=== PATIENT | male | born 1990 | race Caucasian/White ===

== ENCOUNTER 2017-02-05 03:26 | Emergency (ER) | payer MEDICARE ==
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
[~2017-02-05 03:26] MED LIST: ALBUTEROL17 GM INH; BACITRACIN30 GM TOP; DOXYCYCLINE HY100 M1 PO; ERYTHROMYCIN500 MG PO; IBUPROFEN PO; IBUPROFEN800 MG PO; KEFLEX PO; PREDNISONE PO; RONDEC-DM SYRU120 ML PO; VICODIN 5/500 T1 TAB PO; VICODIN PO
[2017-02-05 04:14] LABS: BASOPHIL# 0.1 X10e3 (0-0.3); BASOPHIL% 0.8 % (0-2.5); EOSINOPHIL# 0.1 X10e3 (0-0.7); EOSINOPHIL% 0.8 % (0.0-7.0); HEMATOCRIT 40.5 % (38.0-50.0); HEMOGLOBIN 13.2 gm/dL (13.0-16.0); LYMPHOCYTE# 2.7 X10e3 (1.0-3.5); LYMPHOCYTE% 32.1 % (17.0-45.0); MEAN CELL VOLUME 85.1 FL (83-96); MEAN CORPUSCULAR HEMOGLOBIN 27.7 PG (28-34); MEAN CORPUSCULAR HGB CONC 32.5 g/dL (30-36); MEAN PLATELET VOLUME 9.6 FL (6.5-11.5); MONOCYTE# 0.6 X10e3 (0-1.0); MONOCYTE% 6.9 % (3.0-12.0); NEUTROPHIL# 5.1 X10e3 (1.5-7.1); NEUTROPHIL% 59.4 % (40-75); PLATELET COUNT 178 X10e3 (140-420); RED BLOOD COUNT 4.76 X10e (3.90-5.60); RED CELL DISTRIBUTION WIDTH 14.2 % (11.0-15.5); WHITE BLOOD COUNT 8.5 X10e3 (4.0-10.5)
[2017-02-05 04:15] LABS: DIFF IND NO
[2017-02-05 04:37] LABS: BUN/CREATININE RATIO 13.33; CREATININE SERUM 0.9 mg/dL (0.6-1.4); GLOM FILT RATE Estimated 115.8 mL/min (>60); POTASSIUM 3.9 mmol/L (3.5-5.1)
== END 2017-02-05 07:50 | disposition home or self-care (01) ==
LOC: CED 03:26
PROVIDERS: Emergency Medicine
DX: S62.242B Displaced fracture of shaft of first metacarpal bone, left hand, initial encounter for open fracture (principal); F10.129 Alcohol abuse with intoxication, unspecified; F17.200 Nicotine dependence, unspecified, uncomplicated; Z23 Encounter for immunization; W34.00XA Accidental discharge from unspecified firearms or gun, initial encounter; Y92.9 Unspecified place or not applicable
CPT/HCPCS: 73130; 80048; 85025; 90471; 90715; 96361; 96374; 96375; 99291; G0480; J0690; J1170; J2270